=== PATIENT | male | born 1990 | race Caucasian/White ===

== ENCOUNTER 2016-10-21 02:56 | Emergency (ER) | payer BC ==
[2016-10-21 03:11] VITALS: BP 130/69
--- NOTE | 2016-10-21 03:18 | EDM.PDOC ---
ED HPI GENERAL MEDICAL PROBLEM - General Chief Complaint: General Stated Complaint: panic attack at work Time Seen by Provider: 10/21/16 03:10 Source of Information: Reports: Patient, Old Records ([facility] EMR. No paper hospital chart available.) History Limitations: Reports: No Limitations - History of Present Illness INITIAL COMMENTS - FREE TEXT/NARRATIVE: The patient drove himself to the emergency room for evaluation of a panic attack and anxiety with increased stress secondary to his concerns about the work environment/conditions and safety of other coworkers with dispute with his medical supervisor at about midnight this evening. Utility Agent initially asked him to go home, however the patient refused and try to discuss the matters further with his medical supervisor. He was able to work for about another 3 hours, however then had difficulty concentrating. Secondary to progressive anger issues, the patient decided to come to the emergency room in order to avoid further confrontation with his medical supervisor. Note that the patient has been off of his Wellbutrin for about 1 month and denies any suicidal ideation, however he was afraid that he may become physical with his medical supervisor if he hadn't left work. No other current complaints. The patient also denies any recent fever, cough, wheezing, dyspnea, etc.. He denies any pain or discomfort Onset: Today, Sudden Onset Date: 10/21/16 Onset Time: 12:00 Duration: Improving Context: Reports: Other (As above) Associated Symptoms: Reports: No Other Symptoms. Denies: Diaphoresis, Fever/ Chills, Headaches, Nausea/Vomiting, Shortness of Breath Treatments BURR FILER: Reports: Other (see below) (None) - Related Data Allergies Allergy/AdvReac Type Severity Reaction Status Date / Time No Known Allergies Allergy Verified 10/21/16 02:57 Home Meds: Home Meds buPROPion [Wellbutrin XL] 150 mg PO DAILY 10/21/16 [History] Past Medical History Psychiatric History: Reports: Anxiety, Depression Social & Family History - Tobacco Use Smoking Status *Q: Current Every Day Smoker Tobacco Use Within Last Twelve Months: Cigarettes Years of Tobacco use: 8 (Started at age 17) Packs/Tins Daily: 0.5 Smoking Cessation Information Provided To Patient: Yes Second Hand Smoke Exposure: No Second Hand Smoke Education Provided: No - Caffeine Use Caffeine Use: Reports: Tea (1 glass every other day). Denies: Coffee, Energy Drinks, Soda - Alcohol Use Alcohol Use History: Yes Days Per Week of Alcohol Use: 1 (No previous DWIs, problems with alcohol abuse, etc.) Number of Drinks Per Day: 4 Total Drinks Per Week: 4 Alcohol Use in Last Twelve Months: Yes - Recreational Drug Use Recreational Drug Use: Yes Drug Use in Last 12 Months: Yes Recreational Drug Type: Reports: Marijuana/Hashish (1 joint once per week. Started Age 17). Denies: Amphetamines (Speed), Cocaine, Heroin, Inhalants ( Glues, Solvents, Aerosols), LSD (Acid), Methamphetamine, Morphine Recreational Drug Use Frequency: Weekly Recreational Drug Route: Reports: Inhaled - Living Situation & Occupation Living situation: Reports: Single (No children), with Significant Other Occupation: Employed ([employer], assembly) ED ROS GENERAL - Review of Systems Review Of Systems: ROS reveals no pertinent complaints other than HPI. ED EXAM, GENERAL - Physical Exam Exam: See Below Exam Limited By: No Limitations General Appearance: Alert, WD/WN, No Apparent Distress, Anxious (Moderate) Head: Atraumatic, Normocephalic Neck: Normal Inspection, Supple, Non-Tender, Full Range of Motion. No: Lymphadenopathy (L), Lymphadenopathy (R), Thyromegaly Respiratory/Chest: No Respiratory Distress, Lungs Clear, Normal Breath Sounds, No Accessory Muscle Use, Chest Non-Tender. No: Pleural Rub, Retractions Cardiovascular: No Edema, No Gallop, No JVD, No Murmur, No Rub, Tachycardia ( Regular rhythm). No: Gallop/S3, Gallop/S4, Friction Rub Peripheral Pulses: 4+: Radial (L), Radial (R) GI/Abdominal: Normal Bowel Sounds, Soft, Non-Tender, No Organomegaly, No Distention, No Abnormal Bruit, No Mass. No: Guarding (Male) Exam: Deferred Rectal (Males) Exam: Deferred Back Exam: Normal Inspection, Full Range of Motion. No: CVA Tenderness (L), CVA Tenderness (R), Muscle Spasm Extremities: Normal Inspection, Normal Range of Motion, Non-Tender, Normal Capillary Refill, No Pedal Edema Neurological: Alert, Oriented, CN II-XII Intact, Normal Cognition, Normal Gait, No Motor/Sensory Deficits Psychiatric: Anxious (Moderate), Depressed Mood (Mild to moderate with adequate eye contact and no suicidal ideation) Skin Exam: Warm, Dry, Intact, Normal Color, No Rash, Stud(s) Lymphatic: No Adenopathy Course - Vital Signs Last Recorded V/S: Last Vital Signs Temp 36.4 C 10/21/16 02:56 Pulse 118 H 10/21/16 02:56 Resp 12 10/21/16 02:56 BP 130/69 10/21/16 02:56 Pulse Ox 97 10/21/16 02:56 Vital Signs - 24 hr 10/21/16 02:56 Temperature [ 36.4 C Oral] Pulse, 118 H Peripheral [ Right Pulse Oximetry] Respiratory 12 Rate Blood Pressure 130/69 [Right Upper Arm] O2 Sat by Pulse 97 Oximetry - Orders/Labs/Meds Orders: Active Orders 24 hr Category Date Time Status Cardiac Monitoring [RC] . DIRECTED Care 10/21/16 03:19 Active Obtain Past Medical Record [OM.PC] Routine Oth 10/21/16 03:19 Active Labs: None Meds: None - Radiology Interpretation Free Text/Narrative:: it application development manager shows normal sinus tachycardia with most heart rate of 102 whenever chart rate in the 100s to 110s with no arrhythmia or ectopy Departure - Departure Time of Disposition: 03:42 Disposition: Home, Self-Care 01 Condition: fair Clinical Impression: Mixed anxiety depressive disorder, Tobacco abuse counseling, Illicit drug use, continuous - Discharge Information Instructions: Panic Attacks, [id number] Forms: ED Department Discharge Additional Instructions: 1. See your regular provider later today as discussed for further work excuse and adjustment of your medications as discussed 2. Attempt to discontinue marijuana use DRE as discussed 3. Stop tobacco use once here emotional status is stabilized as discussed 4. Work excuse- See Form - Problem List & Annotations (1) Mixed anxiety depressive disorder SNOMED Code(s): 080184877 Code(s): F41.8 - OTHER SPECIFIED ANXIETY DISORDERS Status: Acute Priority : High Annotation/Comment:: Note noncompliance with his previous medical therapy, which was prescribed for his emotions rather for tobacco cessation by his history. Medication compliance was strongly encouraged with the patient to follow-up with his regular provider later today for further adjustment of his medications, evaluation, treatment, and clarification of his work excuse. [employer] work excuse provided with limitations on necessity of seeing his regular provider. No Suicidal ideation or homicidal tendencies at this time. Consider psychotherapy referral, extended work excuse, etc. depending on his clinical course. Emotional support provided. The patient does plan to talk with human relations later today. Mild sinus tachycardia today secondary to his anxiety. (2) Illicit drug use, continuous SNOMED Code(s): 643842507 Code(s): F19.90 - OTHER PSYCHOACTIVE SUBSTANCE USE, UNSPECIFIED, UNCOMPLICATED Status: Chronic Priority: Medium Annotation/Comment:: The effects of marijuana on his emotional status were discussed with the cessation of this illicit drug encouraged. He denies any other use of illicit drugs including methamphetamine, etc. (3) Tobacco abuse counseling SNOMED Code(s): 237762562, 905317755, 646360126 Code(s): Z71.6 - TOBACCO ABUSE COUNSELING Status: Chronic Priority: Medium Annotation/Comment:: Tobacco cessation advisable once his emotional status has improved - Problem List Review Problem List Initiated/Reviewed/Updated: Yes - My Orders Last 24 Hours: My Active Orders 10/21/16 03:19 Cardiac Monitoring [RC] . DIRECTED Obtain Past Medical Record [OM.PC] Routine - Assessment/Plan Last 24 Hours: My Active Orders 10/21/16 03:19 Cardiac Monitoring [RC] . DIRECTED Obtain Past Medical Record [OM.PC] Routine Assessment:: As above Plan: As above. Extensive precautions were given to the patient, who is in agreement with the treatment plan. See Patient Instructions for further treatment and plan.
== END 2016-10-21 03:42 | disposition home or self-care (01) ==
LOC: LL.ED 02:56
DX: F41.8 Other specified anxiety disorders (principal); Z71.6 Tobacco abuse counseling; F19.90 Other psychoactive substance use, unspecified, uncomplicated; F17.210 Nicotine dependence, cigarettes, uncomplicated; Z79.899 Other long term (current) drug therapy
CPT/HCPCS: 99283